=== PATIENT | male | born 1985 | race Caucasian/White ===

== ENCOUNTER 2021-01-10 23:58 | Emergency (ER) | payer SELFPAY ==
[~2021-01-10] VITALS: Wt 54.5 kg
[~2021-01-10 23:58] MED LIST: AMOXICILLIN 50500 MG PO; AMOXICILLIN875 MG PO; CLEOCIN HC150 MG/CAP PO; CORTISPORIN EAR10 M1 OT; DOXYCYCLINE 10100 MG PO; FLEXERIL 1010 MG/TAB PO; LORTAB 5/500 501 TAB PO; NAPROSYN500 MG PO; NO HOME MEDICATIONS; NORCO 325 MG-51 TAB PO
[2021-01-11 00:01] VITALS: TEMP 97.9
[2021-01-11 00:51] VITALS: BP 132/70; PULSE 78
== END 2021-01-11 00:51 | disposition home or self-care (01) ==
LOC: COL.ER 23:58
DX: R51.9 Headache, unspecified (principal); K08.89 Other specified disorders of teeth and supporting structures; E86.0 Dehydration
CPT/HCPCS: J1885; J2405